=== PATIENT | male | born 1985 | race African-American/Black ===

== ENCOUNTER 2021-10-31 15:01 | Outpatient (REF) | payer OTHER, MEDICAID, SELFPAY ==
--- NOTE | ~2021-10-31 | XR_ITS ---
EXAMINATION: XR HAND/WRIST, RIGHT CLINICAL INFORMATION: Right hand/wrist pain COMPARISON: None TECHNIQUE: 3 views of the right hand/wrist FINDINGS: No acute fracture or dislocation. Bone mineralization is normal. No radiopaque foreign body. No degenerative findings or evidence of an inflammatory arthropathy. XR/XR hand wrist RT IMPRESSION: Normal right hand
== END 2021-10-31 15:02 | disposition home or self-care (01) ==
LOC: HO.HMGCX 15:01
PROVIDERS: Visit Provider Family Medicine
DX: M25.531 Pain in right wrist (principal)
CPT/HCPCS: 73110; 73130

== ENCOUNTER 2022-10-05 10:27 | Outpatient (AMB) | payer OTHER, MEDICAID, SELFPAY ==
--- NOTE | 2022-10-05 10:41 | AM.OFFWIN_ITS ---
Intake Vital Signs 10/05/22 10:44 Height 5 ft 9 in BP 122/74 Blood Pressure Location Lt brachial Position Sitting Pulse 85 Pulse Source Pulse Oximeter Pulse Oximetry (%) 98 Oxygen Delivery Method Room Air Intake Visit Reasons: Follow up on hernia Intake Note: pt is here for f/u hernia. patient was at [facility] a month ago to confirm umbilical hernia. patient is stating he is having pain while lifting at work and would like a work note Patient Tobacco Use Status: Current everyday Tobacco user Allergies cillins Allergy (Intermediate, Uncoded 10/05/22 10:42) Anaphylaxis Do you need a note to return to daycare/school/sports/work: Yes HPI HPI Comments History of Present Illness Details This is a 37-year-old male who presents to the office today for sick visit. Patient complaining of abdominal pain. Patient states he was diagnosed with an umbilical hernia about 1 month ago. He states he occasionally has some abdominal pain/cramping with lifting heavy objects. His work sent him home the other day and he is requesting a note to return back to work. Patient states the hernia is easily reducible. Patient otherwise feels well without chest pain, fever/chills, shortness of breath, nausea/vomiting/diarrhea. [facility] Social History Patient Tobacco Use Status: Current everyday Tobacco user Review of Systems Const All systems reviewed & are unremarkable except as noted in HPI and below Reports no additional complaints Eyes Reports no additional complaints ENT Reports no additional complaints Card Reports no additional complaints Resp Reports no additional complaints GI Reports no additional complaints and Reports abdominal pain Musc Reports no additional complaints Skin/Breast Reports system reviewed and no additional complaints, except as documented Neuro Reports no additional complaints Psych Reports no additional complaints Endo Reports no additional complaints Wally/Lymph Reports no additional complaints Aller/Immun Reports no additional complaints Physical Exam Vital Signs: Last Vital Signs Pulse 85 10/05/22 10:44 BP 122/74 10/05/22 10:44 Pulse Ox 98 10/05/22 10:44 Oxygen Delivery Method Room Air 10/05/22 10:44 Const General: cooperative, healthy appearing, no acute distress and well developed Orientation/consciousness: patient oriented x3 HEENT Head: Yes normal to inspection Ears: hearing grossly normal bilaterally General nose exam: Normal external nose present Face and sinus: Yes normal facial exam Mouth: Normal oral and palatal mucosa present Eyes General: appearance normal, both eyes and all related structures Pupils: Equal, round and reactive pupils present EOM: EOMs intact bilaterally Resp Effort & Inspection: normal respiratory effort and no respiratory distress Auscultation: clear to auscultation bilaterally Cardio Rate: regular rate Rhythm: regular rhythm Heart sounds: no gallops, no murmurs and no rubs Peripheral pulses: Peripheral pulses 2+ throughout GI Other: No visible umbilical hernia at this time. Inspection: Yes normal to inspection and No distended Palpation (GI): Soft to palpation and nontender Auscultation: normal bowel sounds Skin General skin exam: no rashes or lesions noted Neuro General: patient oriented x3 Cranial nerves: Yes CN's II-XII intact bilaterally and Yes Equal, round and reactive pupils present Gait exam (Neuro): Normal gait present Motor exam (neuro): 5/5 motor strength present throughout Extrem General: Yes normal to inspection, Yes full ROM and Yes no clubbing, cyanosis or edema Psych Appearance: grossly normal Mental Status: mental status grossly normal Assessment & Plan Assessment & Plan (1) Umbilical hernia: Code(s): K42.9 - Umbilical hernia without obstruction or gangrene Plan: This is a 37-year-old male presenting to the office for follow-up of his umbilical hernia. Patient requesting a work note to return to work tomorrow. No evidence of incarcerated or strangulated hernia. His abdominal exam is benign without evidence of acute abdomen. Patient may return to work without restrictions tomorrow. Patient to continue follow-up with his outpatient providers as scheduled. Continue with supportive management including acetaminophen/ibuprofen for pain management and increase fluids. Patient advised to follow-up here go to the emergency room if he is unable to reduce the hernia or if he were to develop worsening abdominal pain, fever/chills, or nausea/vomiting/diarrhea. Patient verbalized understanding and is agreeable with the plan. Coding Level of Care Code Est Pt Level 3 (53912) Diagnoses Umbilical hernia K42.9
[2022-10-05 10:44] VITALS: BP 122/74; PULSE 85; O2SAT 98
== END 2022-10-05 11:16 | disposition home or self-care (01) ==
PROVIDERS: Visit Provider Physician Assistant Medical
DX: K42.9 Umbilical hernia without obstruction or gangrene (principal)
CPT/HCPCS: 99051; 99213

== ENCOUNTER 2023-07-16 13:11 | Outpatient (AMB) | payer OTHER, SELFPAY ==
[2023-07-16 13:53] VITALS: BP 126/80; PULSE 71; O2SAT 98; BMI 27.0
--- NOTE | 2023-07-16 13:53 | MHC.OFFWIV ---
Intake Vital Signs 07/16/23 13:53 Height 5 ft 9 in Weight 183 lb BMI 27.0 BP 126/80 Blood Pressure Location Rt brachial Position Sitting Pulse 71 Pulse Source Pulse Oximeter Pulse Oximetry (%) 98 Oxygen Delivery Method Room Air Intake Visit Reasons: EP buttock pain Intake Note: pt is here for buttock pain, states its been flaring up for the last 2 week. some blood and puss Patient Tobacco Use Status: Current everyday Tobacco user Allergies cillins Allergy (Intermediate, Uncoded 07/16/23 13:55) Anaphylaxis Do you need a note to return to daycare/school/sports/work: No HPI HPI Comments History of Present Illness Details 37 y/o male patient who presents to walk in clinic with c/o rectal pain and feeling bulging around rectal opening. Pt does endorse constipation with hard stools. Denies rectal bleeding but endorses pain with wiping and bowel movement. [facility] Social History Patient Tobacco Use Status: Current everyday Tobacco user Review of Systems Const All systems reviewed & are unremarkable except as noted in HPI and below Physical Exam Vital Signs: Last Vital Signs Pulse 71 07/16/23 13:53 BP 126/80 07/16/23 13:53 Pulse Ox 98 07/16/23 13:53 Oxygen Delivery Method Room Air 07/16/23 13:53 BMI result Body Mass Index 27.0 Const General: no acute distress; No comfortable Nutritional Appearance: well nourished Orientation/consciousness: patient oriented x3 GI Rectal Exam - Male: Yes visual inspection normal, Yes normal sphincter tone, Yes Internal hemorrhoid(s) present, Yes Anal fissure(s) present and Yes tenderness Neuro General: patient oriented x3, gait normal and moves all extremities Psych Speech and movement: Normal speech and movement present Assessment & Plan Assessment & Plan (1) Constipation: Code(s): K59.00 - Constipation, unspecified Qualifiers: Constipation type: slow transit constipation Qualified Code(s): K59.01 - Slow transit constipation Plan: - Increase fiber intake - Increase water and fluids intake - Routine exercise (2) Rectal pain: Code(s): K62.89 - Other specified diseases of anus and rectum Plan: - Anusol, prob internal hemorrhoids. - Keep rectum dry and clean. Medications: New hydrocortisone acetate (Anusol-HC) 25 mg WI BEDTIME 12 ea 0RF K64.9 - Unspecified hemorrhoids polyethylene glycol 3350 (Miralax) 17 grams PO DAILY 30 ea 0RF K59.00 - Constipation, unspecified Coding Level of Care Code Est Pt Level 3 (86747) Diagnoses Slow transit constipation K59.01 Constipation type: slow transit constipation Rectal pain K62.89 Time Spent (min) 15
== END 2023-07-16 14:15 | disposition home or self-care (01) ==
PROVIDERS: Visit Provider Nurse Practitioner Family
DX: K59.01 Slow transit constipation (principal); K62.89 Other specified diseases of anus and rectum
CPT/HCPCS: 99213

== ENCOUNTER 2023-12-19 14:42 | Outpatient (AMB) | payer OTHER, SELFPAY ==
--- NOTE | 2023-12-19 14:48 | AM.OFFWIN_ITS ---
Intake Vital Signs 12/19/23 14:57 Height 5 ft 9 in Weight 186 lb BMI 27.5 BP 110/68 Blood Pressure Location Rt brachial Position Sitting Pulse 92 Pulse Source Pulse Oximeter Pulse Oximetry (%) 98 Oxygen Delivery Method Room Air Intake Visit Reasons: EP-STI Intake Note: Patient here to have STD check Patient Tobacco Use Status: Current everyday Tobacco user Allergies cillins Allergy (Intermediate, Uncoded 12/19/23 14:56) Anaphylaxis Do you need a note to return to daycare/school/sports/work: No HPI HPI Comments History of Present Illness Details Patient is a 38-year-old male looking for STI testing, he asked what are the different kinds of sexually transmitted infections, he asked which ones he could be tested for. He tells me he does not have any pain in his penis or testes, he does not have any abnormal discharge, he does not have any fevers or known exposures to sexually transmitted infections. He tells me he has more looking for a clean bill of health COUNTS INCLUDE 234 BEDS AT THE [facility] Social History Patient Tobacco Use Status: Current everyday Tobacco user Review of Systems Const All systems reviewed & are unremarkable except as noted in HPI and below Physical Exam Vital Signs: Last Vital Signs Pulse 92 12/19/23 14:57 BP 110/68 12/19/23 14:57 Pulse Ox 98 12/19/23 14:57 Oxygen Delivery Method Room Air 12/19/23 14:57 BMI result Body Mass Index 27.5 Const General: cooperative, healthy appearing, comfortable, no acute distress and well developed Orientation/consciousness: patient oriented x3 Limitations: no limitations HEENT Head: Yes normal to inspection Ears: hearing grossly normal bilaterally General nose exam: Normal external nose present Face and sinus: Yes normal facial exam Eyes General: appearance normal, both eyes and all related structures Neck Neck: Yes normal visual inspection and Yes full ROM Resp Effort & Inspection: normal respiratory effort and able to speak in complete sentences Skin General skin exam: no rashes or lesions noted Neuro General: patient oriented x3 Extrem General: Yes normal to inspection Assessment & Plan Assessment & Plan (1) Concern about sexually transmitted disease in male without diagnosis: Code(s): Z71.1 - Person with feared health complaint in whom no diagnosis is made Plan: Explained different kinds of testing such as HIV, syphilis, hepatitis-C, gonorrhea and chlamydia. Patient understands we tested him for gonorrhea and chlamydia today but as he is asymptomatic for anything else, he should follow up with his primary care doctor if he feels he needs to be tested for any of the other infections. Plan See above Coding Level of Care Code New Pt Level 3 (78481) Diagnoses Concern about sexually transmitted disease in male without diagnosis Z71.1
[2023-12-19 14:57] VITALS: BP 110/68; PULSE 92; O2SAT 98; BMI 27.5
== END 2023-12-19 15:15 | disposition home or self-care (01) ==
PROVIDERS: Visit Provider Physician Assistant
DX: Z71.1 Person with feared health complaint in whom no diagnosis is made (principal)

== ENCOUNTER 2023-12-19 14:42 | Outpatient (REF) | payer OTHER, SELFPAY ==
[2023-12-21 09:43] LABS: CT PCR NOT DETECTED (Not Detect.); NG PCR NOT DETECTED (Not Detect.)
== END 2023-12-19 14:43 | disposition home or self-care (01) ==
LOC: HO.LAB 14:42
PROVIDERS: Visit Provider Physician Assistant
DX: Z71.1 Person with feared health complaint in whom no diagnosis is made (principal)
CPT/HCPCS: 87491; 87591